=== PATIENT | male | born 1980 | race Caucasian/White ===

== ENCOUNTER 2024-05-15 15:11 | Emergency (ER) | payer OTHER, SELFPAY ==
[2024-05-15] VITALS (21 sets, daily range): BP systolic 137–171; BP diastolic 87–92; PULSE 58–95; RESP 18; TEMP 36.9; O2SAT 91–96; BMI 29.6
--- NOTE | 2024-05-15 15:53 | CRLHL7_ITS ---
For Patients: As a result of the Cures Act, medical imaging exams and procedure reports are released immediately into your electronic medical record. You may view this report before your referring provider. If you have questions, please contact your health care provider. INDICATION: Chest pain. TECHNIQUE: Chest 2 views. COMPARISON: August 11, 2022. FINDINGS: Cardiovascular and mediastinum: Cardiomediastinal silhouette is within normal limits. Lungs and pleural spaces: Lungs are clear. No sign of pleural effusion. No pneumothorax. Bones and soft tissues: No significant findings. IMPRESSION: No acute findings and no significant change from the prior exam. Dictated by Brittney Souza MD @ 05/15/2024 6:31:53 PM (Electronically Signed)
[2024-05-15 16:10] LABS: Basophils Absolute Auto 0.05 K/uL (0.00-0.30); Basophils Percent Auto 0.6 % (0.0-3.0); Eosinophils Percent Auto 8.6 % (0.0-7.0); Hematocrit 46.3 % (37.0-53.0); Hemoglobin* 15.7 gm/dL (13.5-17.5); Immature Granulocytes Abs Auto 0.01 K/uL (0.00-0.30); Immature Granulocytes Pct Auto 0.1 %; Lymphocytes Absolute Auto 2.38 K/uL (0.90-2.90); Lymphocytes Percent Auto 29.2 % (20-44); Mean Corpuscular HGB Conc 34 gm/dL (32-36); Mean Corpuscular Hemoglobin 31 pg (26-34); Mean Corpuscular Volume 92 fL (80-100); Monocytes Percent Auto 9.7 % (0.0-11.0); Neutrophils Absolute Auto 4.23 K/uL (1.7-7.0); Neutrophils Percent Auto 51.8 % (42.0-72.0); Platelet Count* 202 K/uL (140-440); RDW Coefficient of Variation % 13.1 % (11.5-15.5); Red Blood Count 5.04 m/uL (4.30-5.90); White Blood Count* 8.16 K/uL (4.50-11.00)
[2024-05-15 16:28] LABS: Chloride* 106 mmol/L (96-114); Potassium* 4.1 mmol/L (3.6-5.1); Sodium* 138 mmol/L (135-149)
[2024-05-15 16:30] LABS: Slide Review Reflex No
[2024-05-15 16:31] LABS: Anion Gap 10 mEq/L (7-15); Blood Urea Nitrogen* 18 mg/dL (5-24); Carbon Dioxide* 22 mmol/L (20-32); Creatinine* 0.8 mg/dL (0.5-1.5); Estimated Glomerular Filt Rate 112 ml/min
[2024-05-15 16:32] LABS: Calcium* 9.4 mg/dL (8.4-10.6); Glucose* 100 mg/dL (60-115); Magnesium* 2.2 mg/dL (1.5-2.6)
[2024-05-15 16:43] LABS: Troponin I* < 0.01 ng/mL (0.01-0.04)
--- NOTE | 2024-05-15 16:51 | ED_ITS ---
HPI - Chest Pain General Date Seen: 05/15/24 Chief Complaint: Chest Pain Stated Complaint: SOB, tingly L side of body, dizzy, ref triage nurs Time Seen by Provider: 05/15/24 15:34 Source: patient Mode of arrival: ambulatory Limitations: no limitations History of Present Illness HPI narrative: Patient is a 44-year-old male with no pertinent medical problems presenting to the emergency department for multiple complaints. For the past few weeks he will get a tingling sensation to left side of his face along with in his fingers and toes. He will also have associated chest pressure. States the symptoms almost only occur when he is working. States he has very stressful job of distress isn't any worse than his normal. Did mention several times throughout the interview that he is under a lot of stress at baseline. The left-sided mid chest pressure was starting up again in he was having some lightheadedness and felt like he was about to pass out. They called triage sign was told to come to the emergency department. He states he is currently asymptomatic at this time. States he will intermittently have some shortness of breath but again feels like this is related to work. Also admits to being more fatigued than normal. Does occurred region a get some blurry vision but it is usually when he has been staring at a computer screen for long time. Denies fevers, chills, headache, dizziness, abdominal pain, diarrhea, constipation, dysuria, nausea/vomiting, weakness. Related Data Previous Rx's ?Medication ?Instructions ?Recorded azithromycin 250 mg tablet See Rx Instructions PO .COMPLEX #6 08/11/22 tabs prednisone 20 mg tablet 40 mg (2 x 20 mg) PO QDAY #10 tabs 08/11/22 lisinopril 10 mg tablet 10 mg PO DAILY #30 tabs 05/15/24 Allergies Allergy/AdvReac Type Severity Reaction Status Date / Time No Known Drug Allergies Allergy Verified 08/11/22 12:33 Review of Systems Status of ROS Reports: 10 or more systems reviewed and unremarkable except as noted in History and below [facility] Social History Smoking Status: Never smoker Do you use any of these nicotine containing products: None Exam Narrative Exam Narrative: Const: Well-nourished, Well-developed, in mild distress Eyes: PERRL, no conjunctival injection, and symmetrical lids HENT: Atraumatic external nose and ears. Moist mucous membranes. Neck: Symmetric, trachea midline, No thyromegaly. CVS: RRR, No murmurs or gallops. Peripheral pulses 2+ and equal in all extremities RESP: Unlabored respiratory effort. Clear to auscultation bilaterally. GI: Nontender/Nondistended, No rebound or guarding. MSK:Extremities w/o deformity, Normal Active ROM Skin: Warm, Dry. No rashes or lesions. Neuro: Normal Muscle tone, No focal neurological deficits. Psych: Awake, Alert, & Oriented x3. Appropriate mood and affect. Const Vital Signs, click to edit/add: Vital Signs - 24 hr 05/15/24 15:15 Temperature 98.5 F Pulse Rate [Right Radial] 76 Respiratory Rate 18 Blood Pressure [Right Upper Arm] 171/90 H Pulse Oximetry 95 Oxygen Delivery Method Room Air Course Vital Signs Vital signs: Initial Vital Signs Temperature 98.5 F 05/15/24 15:15 Temperature Source Temporal Artery Scan 05/15/24 15:15 Pulse Rate 76 05/15/24 15:15 Pulse Rhythm Regular 05/15/24 15:15 Respiratory Rate 18 05/15/24 15:15 Blood Pressure 171/90 H 05/15/24 15:15 Blood Pressure Mean 117 H 05/15/24 15:15 Pulse Oximetry 95 05/15/24 15:15 Oxygen Delivery Method Room Air 05/15/24 15:15 Vital Signs Temperature 98.5 F 05/15/24 15:15 Pulse Rate 76 05/15/24 15:15 Respiratory Rate 18 05/15/24 15:15 Blood Pressure 171/90 H 05/15/24 15:15 Pulse Oximetry 95 05/15/24 15:15 Oxygen Delivery Method Room Air 05/15/24 15:15 Temperature 98.5 F 05/15/24 15:15 Pulse Rate 76 05/15/24 15:15 Respiratory Rate 18 05/15/24 15:15 Blood Pressure 171/90 H 05/15/24 15:15 Pulse Oximetry 95 05/15/24 15:15 Oxygen Delivery Method Room Air 05/15/24 15:15 MDM - Chest Pain MDM Narrative Medical decision making narrative: Patient is a 44-year-old male presenting for chest pain. The differential diagnosis of chest pain is broad and includes common etiologies such as musculoskeletal strain, GERD, pneumonia, etc. More serious etiologies considered include PE, coronary artery disease, pneumothorax, aortic dissection, aortic aneurysm. He can be PERCed out and D-dimers not necessary to rule out a PE. Will do a CBC, BMP, COVID/flu, troponin, EKG, chest x-ray. This numbness in his fingers and toes seems very unlikely to be a stroke as it is not consistent with 1. More likely related to his anxiety. His occasional blurry vision also seems related to staring at a bright screen to long. I do not believe head imaging is necessary at this time. Lab work all returned showing no concerning abnormalities. EKG shows no concerning findings. Repeat troponin also with no concerning abnormalities. Chest x-ray reviewed by myself and the radiologist shows no acute abnormalities. I cannot say for certain was causing all the symptoms but could be related to anxiety. He is hypertensive currently and he does not have a primary care doctor in the area. I will give him information to set up primary care now start him on 30 days of blood pressure medication. Will start him on lisinopril daily. He is agreeable to this plan. Lab Data Labs: Lab Results 05/15/24 05/15/24 05/15/24 Range/Units 15:28 15:32 16:20 WBC 8.16 (4.50-11.00) K/uL RBC 5.04 (4.30-5.90) m/uL Hgb 15.7 (13.5-17.5) gm/dL Hct 46.3 (37.0-53.0) % MCV 92 (80-100) fL MCH 31 (26-34) pg MCHC 34 (32-36) gm/dL RDW Coeff of Rao 13.1 (11.5-15.5) % Plt Count 202 (140-440) K/uL Neut % (Auto) 51.8 (42.0-72.0) % Lymph % (Auto) 29.2 (20-44) % [place] % (Auto) 9.7 (0.0-11.0) % Eos % (Auto) 8.6 H (0.0-7.0) % Baso % (Auto) 0.6 (0.0-3.0) % Neut # (Auto) 4.23 (1.7-7.0) K/uL Lymph # (Auto) 2.38 (0.90-2.90) K/uL [place] # (Auto) 0.80 (0.00-0.90) K/UL Eos # (Auto) 0.70 H (0.00-0.50) K/uL Baso # (Auto) 0.05 (0.00-0.30) K/uL Abs Immat Gran (auto) 0.01 (0.00-0.30) K/uL Imm/Tot Granulo (auto) 0.1 % Sodium 138 (135-149) mmol/L Potassium 4.1 (3.6-5.1) mmol/L Chloride 106 (96-114) mmol/L Carbon Dioxide 22 (20-32) mmol/L Anion Gap 10 (7-15) mEq/L BUN 18 (5-24) mg/dL Creatinine 0.8 (0.5-1.5) mg/dL Estimated Creat Clear 148.50 Estimated GFR 112 ml/min Glucose 100 (60-115) mg/dL Calcium 9.4 (8.4-10.6) mg/dL Magnesium 2.2 (1.5-2.6) mg/dL Troponin I < 0.01 L (0.01-0.04) ng/mL SARS-CoV-2 (PCR) Negative SARS-CoV-2 (Negative) Influenza Type A (PCR) Negative PCR FLU A (Negative) Influenza Type B (PCR) Negative PCR FLU B (Negative) POC Troponin I 0.01 (0.01-0.04) ng/ml 05/15/24 Range/Units 17:47 WBC (4.50-11.00) K/uL RBC (4.30-5.90) m/uL Hgb (13.5-17.5) gm/dL Hct (37.0-53.0) % MCV (80-100) fL MCH (26-34) pg MCHC (32-36) gm/dL RDW Coeff of Rao (11.5-15.5) % Plt Count (140-440) K/uL Neut % (Auto) (42.0-72.0) % Lymph % (Auto) (20-44) % [place] % (Auto) (0.0-11.0) % Eos % (Auto) (0.0-7.0) % Baso % (Auto) (0.0-3.0) % Neut # (Auto) (1.7-7.0) K/uL Lymph # (Auto) (0.90-2.90) K/uL [place] # (Auto) (0.00-0.90) K/UL Eos # (Auto) (0.00-0.50) K/uL Baso # (Auto) (0.00-0.30) K/uL Abs Immat Gran (auto) (0.00-0.30) K/uL Imm/Tot Granulo (auto) % Sodium (135-149) mmol/L Potassium (3.6-5.1) mmol/L Chloride (96-114) mmol/L Carbon Dioxide (20-32) mmol/L Anion Gap (7-15) mEq/L BUN (5-24) mg/dL Creatinine (0.5-1.5) mg/dL Estimated Creat Clear Estimated GFR ml/min Glucose (60-115) mg/dL Calcium (8.4-10.6) mg/dL Magnesium (1.5-2.6) mg/dL Troponin I (0.01-0.04) ng/mL SARS-CoV-2 (PCR) (Negative) Influenza Type A (PCR) (Negative) Influenza Type B (PCR) (Negative) POC Troponin I 0.00 L (0.01-0.04) ng/ml Imaging Data Chest x-ray: Attestation: I have reviewed the pertinent imaging results. Radiologist's impression: No acute findings and no significant change from the prior exam. Dictated by Brittney Souza MD @ 05/15/2024 6:31:53 PM ECG Data Attestation: I personally reviewed and interpreted this ECG as follows: Prior ECG tracings: not available for review Interpretation: Normal size rhythm with a rate of 66 beats per minute, normal intervals, normal axis, no ST or T-wave abnormalities. Discharge Plan Discharge Clinical Impression: Atypical chest pain Hypertension Qualifiers: Hypertension type: unspecified Qualified Code(s): I10 - Essential (primary) hypertension Patient Disposition: Home, Self-Care Condition: Stable Instructions: Noncardiac Chest Pain (ED) Additional Instructions: At this time I do not see any signs of infection, cardiac disease, lung disease. I do recommend a repeat assessment if symptoms are getting worse. I gave the information to set up primary care in a recommended close follow-up. I also started on 30 days of blood pressure medicine for your hypertension. Prescriptions: New lisinopril 10 mg tablet 10 mg PO DAILY Qty: 30 0RF No Action azithromycin 250 mg tablet See Rx Instructions PO .COMPLEX Qty: 6 0RF Rx Instructions: For 250 mg dose pack: take 500 mg today (day 1), then 250 mg for 4 days (days 2-5) PO prednisone 20 mg tablet 40 mg PO QDAY Qty: 10 0RF Follow Up/Referrals: Provider,Not a Local [Primary Care Provider] - Stand Alone Forms: [employer] Info Instructions
[2024-05-15 17:03] LABS: PCR FLU A Negative PCR FLU A (Negative); PCR FLU B Negative PCR FLU B (Negative); SARS PCR* Negative SARS-CoV-2 (Negative)
[2024-05-15 17:57] LABS: Troponin, Point-of-Care* 0.01 ng/ml (0.01-0.04)
== END 2024-05-15 19:44 | disposition home or self-care (01) ==
PROVIDERS: Emergency Provider Student in an Organized Health Care Education/Training Program
DX: R07.9 Chest pain, unspecified (principal); I10 Essential (primary) hypertension
CPT/HCPCS: 36415; 71046; 80048; 83735; 84484; 85025; 87631; 93005; 99283; 99284